=== PATIENT | female | born 1960 | race Caucasian/White ===

== ENCOUNTER 2016-11-11 07:02 | Inpatient (IN) ==
[2016-11-09 17:37] LABS: Appearance,Urine CLEAR; Bacteria,Urine 0 /hpf (0); Bilirubin,Urine NEG (NEG); Color,Urine YELLOW; Glucose,Urine (UA) NEGATIVE (NEG); Leukocyte Esterase,Urine 25 /uL (NEG); Mucus,Urine MOD /hpf (0); Nitrate,Urine NEG (NEG); Protein,Urine NEG (NEG); Urine Blood NEG mg/dL (<0.03); Urine Hyaline Cast 1 /lpf (0-2); Urine RBC 1 /hpf (0-1); Urine Squamous Epithelial Cell 1 /hpf (0-4); Urine Transitional Epi Cells < 1 /hpf (0-2); Urine WBC 2 /hpf (0-4); Urobilinogen,Urine NEG (NEG)
[2016-11-09 20:09] LABS: Basophils # (Auto) 0.1 K/mcL (0.0-0.3); Basophils % (Auto) 0.7 % (0.0-2.0); Eosinophils # (Auto) 0.1 K/mcL (0.0-0.7); Eosinophils % (Auto) 1.2 % (0.0-7.0); Granulocytes % (Auto) 65.8 % (38.0-78.0); Lymphocytes # (Auto) 2.1 K/mcL (1.5-4.8); Lymphocytes % (Auto) 22.8 % (15.5-49.0); Mean Cell Volume 87.5 fL (80.0-100.0); Mean Corpuscular HGB Conc 32.8 g/dL (31.0-36.0); Mean Corpuscular Hemoglobin 28.7 pg (26.0-34.0); Monocytes # (Auto) 0.9 K/mcL (0.1-0.9); Monocytes % (Auto) 9.5 % (1.0-9.0); Platelet Count 421 K/mcL (140-440); RBC 5.18 M/mcL (4.00-5.20); Red Cell Distribution Width 14.1 % (11.5-14.5)
[2016-11-09 20:49] LABS: Blood Urea Nitrogen 17 mg/dl (6-20)
[~2016-11-11 07:02] MED LIST: CELECOXIB 200 MG CAPSULE PO SCH; PREGABALIN 150 MG CAPSULE PO SCH; ceFAZolin 1 GM VIAL IV SCH; oxyCODONE 10 MG TAB.ER.12H PO SCH
[2016-11-11] MEDS ORDERED: TRANEXAMIC ACID 1,000 MG/10 ML VIAL IV ONE ×2 (09:25→11:19)
[2016-11-11] MEDS ORDERED: ONDANSETRON 4 MG/2 ML VIAL IV ONE (09:25)
[2016-11-11] MEDS ORDERED: GLYCOPYRROLATE 0.2 MG/ML VIAL IV ONE (09:25)
[2016-11-11] MEDS ORDERED: SUCCINYLCHOLINE 20 MG/ML ML IV ONE (09:25)
[2016-11-11] MEDS ORDERED: ROPIVACAINE HCL/PF 30 ML VIAL IJ ONE (09:25)
[2016-11-11] MEDS ORDERED: MIDAZOLAM 5 MG/5 ML VIAL IV ONE (09:25)
[2016-11-11] MEDS ORDERED: fentaNYL 250 MCG/5 ML VIAL IV ONE (09:25)
[2016-11-11] MEDS ORDERED: LIDOCAINE HCL/PF 100 MG/5 ML SYRINGE IV ONE (09:25)
[2016-11-11] MEDS ORDERED: PROPOFOL 200 MG/20 ML VIAL IV ONE (09:25)
[2016-11-11] MEDS ORDERED: DEXAMETHASONE 10 MG/ML VIAL IV ONE (09:25)
[2016-11-11] MEDS ORDERED: BENZOCAINE/MENTHOL 1 LOZENGE PO PRN ×2 (10:32→11:19)
[2016-11-11] MEDS ORDERED: FLUMAZENIL 0.1 MG/ML ML IV PRN (10:32)
[2016-11-11] MEDS ORDERED: ATROPINE SULFATE 0.4 MG/ML VIAL IV PRN (10:32)
[2016-11-11] MEDS ORDERED: IPRATROPIUM/ALBUTEROL 3 ML AMPUL.NEB NEB PRN (10:32)
[2016-11-11] MEDS ORDERED: NALOXONE HCL 0.4 MG/ML VIAL IV PRN (10:32)
[2016-11-11] MEDS ORDERED: diphenhydrAMINE 50 MG/ML VIAL IV PRN (10:32)
[2016-11-11] MEDS ORDERED: METHOCARBAMOL 1,000 MG/10 ML VIAL IV PRN (10:32)
[2016-11-11] MEDS ORDERED: fentaNYL 100 MCG/2 ML VIAL IV PRN (10:32)
[2016-11-11] MEDS ORDERED: ONDANSETRON 4 MG/2 ML VIAL IV PRN ×2 (10:32→11:19)
[2016-11-11] MEDS ORDERED: HYDROmorphone 2 MG/ML SYRINGE IV PRN ×2 (10:32→11:19)
[2016-11-11] MEDS ORDERED: PROMETHAZINE 25 MG/ML VIAL IV PRN (10:32)
[2016-11-11] MEDS ORDERED: METOPROLOL TARTRATE 5 MG/5 ML VIAL IV PRN (10:32)
[2016-11-11] MEDS ORDERED: ePHEDrine 50 MG/ML AMPUL IV PRN (10:32)
[2016-11-11] MEDS ORDERED: MEPERIDINE 25 MG/ML SYRINGE IV PRN (10:32)
[2016-11-11] MEDS ORDERED: LACTATED RINGERS 1,000 ML IV SCH (10:45)
[2016-11-11] MEDS ORDERED: KETOROLAC 15 MG/ML VIAL IV PRN (11:19)
[2016-11-11] MEDS ORDERED: BISACODYL 10 MG SUPP.RECT PR PRN (11:19)
[2016-11-11] MEDS ORDERED: MAGNESIUM HYDROXIDE 30 ML ORAL.SUSP PO PRN (11:19)
[2016-11-11] MEDS ORDERED: POLYETHYLENE GLYCOL 3350 17 GM PACKET PO PRN (11:19)
[2016-11-11] MEDS ORDERED: FLEETS ADULT ENEMA PR PRN (11:19)
[2016-11-11] MEDS ORDERED: DEXTROSE 50% 50 ML VIAL IV PRN (11:19)
[2016-11-11] MEDS ORDERED: ZOLPIDEM 10 MG TABLET PO PRN (11:26)
[2016-11-11] MEDS ORDERED: CYCLOBENZAPRINE 10 MG TABLET PO PRN (11:26)
--- NOTE | 2016-11-11 11:29 | Brief Operative Note ---
Date of procedure: 11/11/16 Pre-op diagnosis: Left shoulder sever DJD Post-op diagnosis: same Procedure: Left total shoulder arthroplasty, bicep tenodesis Grafts/Implants: Yes (Depuy CAP 40 x 15, anchor peg glenoid 40) Anesthesia: GETA Findings: above Complications: none Surgeon: Jose Perera Cotton Dispatcher: Aurelio Michaels Estimated blood loss (cc): 200 Specimens Removed/Pathology: none sent Condition: stable Disposition: PACU
[2016-11-11] MEDS ORDERED: INSULIN LISPRO 1 UNIT/0.01 ML UNIT SQ SCH (11:30)
--- NOTE | 2016-11-11 13:01 | XRay Report ---
CLINICAL INFORMATION: Postop shoulder prostheses COMPARISON: None. FINDINGS: Arthroplasty changes noted alignment is anatomic. No osseous abnormality. Soft tissue swelling seen as expected IMPRESSION: Negative Interpreted and Authenticated by: Radu Jacinto 11/11/16
[2016-11-11] MEDS: 0.9 % SODIUM CHLORIDE 1,000 ML IV SCH ×2 (13:25→23:06)
[2016-11-11] MEDS: 0.9 % SODIUM CHLORIDE 10 ML SYRINGE IV SCH ×2 (16:00→21:33)
[2016-11-11] MEDS: ceFAZolin 1 GM VIAL IV SCH (18:08)
[2016-11-11] MEDS: HYDROcodone/APAP 10/325MG TABLET PO PRN ×3 (19:07→23:05)
[2016-11-11] MEDS: DOCUSATE SODIUM 100 MG CAPSULE PO SCH (20:03)
[2016-11-11] MEDS ORDERED: GABAPENTIN 100 MG CAPSULE PO SCH (21:00)
[2016-11-11] MEDS ORDERED: SENNOSIDES 1 TABLET PO SCH (21:00)
[2016-11-12] MEDS: ceFAZolin 1 GM VIAL IV SCH (00:52)
[2016-11-12] MEDS: 0.9 % SODIUM CHLORIDE 10 ML SYRINGE IV SCH (06:10)
--- NOTE | 2016-11-12 07:52 | Discharge Summary ---
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 Chief Complaint: [] Discharge date: 11/12/16 Hospitalization Hospital course: Pt admitted for total shoulder arthroplasty. After procedure pt was transferred to floor for iv pain meds. abx, and PT. pt discharged post-op day 1. Discharge diagnosis: L shoulder osteoarthrosis Exam - Exam Clean and dry: Yes Weight bearing status: none Ortho Discharge - TSA - Patient Instructions Diet: Regular Diet Activity: non weight bearing Total Shoulder Protocol: Leave immobilizer in place except for bathing and ROM. Abduction pillow. Continue to wear sling until seen by physician. Codman Pendulum : These exercises use momentum produced by your body to move your shoulder joint. Bend your knees and shift your weight to your front leg, then back, allowing your arm to swing in the same directions. Using the same technique, alternately shift your weight between your right and left legs, allowing your arm to swing from side to side. These exercises are also performed in counterclockwise and clockwise circular motions. Typically these exercises are performed several times per day, for a set number repetitions or minutes, such as 20 times in a row or 5 minutes at a time. Dressing Care: May shower in 2 days - Follow Up Plan Disposition: Home, Self-Care Prognosis: Good Rehab Potential: Good Overall status at discharge: patient is progressing back to baseline - Orders For Discharge Prescriptions: HYDROcodone/APAP 10/325MG [[place] 10/325Mg] 1 - 2 tab PO Q4HP PRN #60 tablet PRN Reason: Pain Pending Studies Resuscitation Status Full Code Diet Regular Diet Start WedNov 11 Dinner Acetaminophen/Hydrocodone Bitart ([place] 10/325mg) 0 tab PO Q4HP PRN PRN Reason: Pain Last Admin: 11/11/16 23:05 Dose: 2 tab Admin: 11/11/16 19:58 Dose: 1 tab Admin: 11/11/16 19:07 Dose: 1 tab Docusate Sodium (Colace) 100 mg PO BID [facility] Last Admin: 11/11/16 20:03 Dose: 100 mg Gabapentin (Neurontin) 500 mg PO HS [facility] Last Admin: 11/11/16 20:02 Dose: 500 mg Hydromorphone HCl (Dilaudid) 0 mg IV Q2HP PRN PRN Reason: Pain Last Admin: 11/11/16 16:00 Dose: 0.5 mg Sodium Chloride (Sodium Chloride 0.9%) 1,000 mls @ 100 mls/hr IV .Q10H [facility] Last Admin: 11/11/16 23:06 Dose: 100 mls/hr Infusion: 11/11/16 23:06 Dose: 100 mls/hr Admin: 11/11/16 13:25 Dose: 100 mls/hr Senna (Senokot) 2 tab PO HS [facility] Last Admin: 11/11/16 20:03 Dose: 2 tab Sodium Chloride (Saline Flush) 10 ml IV Q8 [facility] Last Admin: 11/12/16 06:10 Dose: Not Given Admin: 11/11/16 21:33 Dose: Not Given Admin: 11/11/16 16:00 Dose: 10 ml Zolpidem Tartrate (Ambien) 10 mg PO HSP PRN PRN Reason: Insomnia Last Admin: 11/11/16 23:05 Dose: 10 mg Shift Summary 11/12/16 04:38 Shift Summary by Bisi Stephens Did well through night. Medicated x2 with 2 tabs Hydrocodone, last so far at 2300. Up with SBA to bathroom to void, QS. Immobilizer in place. 20G IV to RFA. SCD's while in bed. O2 placed while sleeping. Alert and oriented. Hx of chronic back pain, uses cold packs on back while in bed. Tolerating diet. Uses call light appropriately. Initialized on 11/12/16 04:38 - END OF NOTE
--- NOTE | 2016-11-12 08:43 | Operative Note ---
DATE OF OPERATION: 11/11/2016 PREOPERATIVE DIAGNOSIS: Left shoulder severe degenerative joint disease. POSTOPERATIVE DIAGNOSIS: Left shoulder severe degenerative joint disease. PROCEDURE PERFORMED: 1. Left total shoulder arthroplasty. 2. Biceps tenodesis. SURGEON: Jose Perera MD. 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 ANESTHESIA: General. DRAINS: None. SPECIMENS: None. COMPLICATIONS: None. BLOOD LOSS: 150 mL POSTOPERATIVE CONDITION: Stable. INDICATIONS FOR SURGERY: This is a 56-year-old female who is having progressive worsening left shoulder pain. Radiographs showed advanced [id number] osteoarthritis. FINDINGS AT SURGERY: As above. She did have an extremely small glenoid with poor quality bone; however, post-procedure showed satisfactory component position and stability. PROCEDURE IN DETAIL: The patient had been seen preoperatively. Informed consent had been obtained after discussion of risks and benefits of surgery. Risks including, but not limited to, bleeding; infection; injury to nerves, blood vessels, and other surrounding structures; anesthetic risks; incomplete or no resolution of symptoms; stiffness; weakness; dislocation; fracture, possibility of needing further surgery. She understood and wished to proceed. Correct operative site was marked in preoperative holding and the patient was taken to the operating room and general anesthesia was induced. She was carefully positioned in the beach chair position and pressure points carefully padded. Left shoulder and upper extremity were then carefully prepped and draped in normal sterile fashion and a time-out was performed verifying patient name, operative site, and plan. All skin surfaces were covered with Ioban and then a standard deltopectoral incision was made with scalpel through skin and subcutaneous tissue. Hemostasis was obtained with Bovie cautery. Careful blunt dissection was taken down onto the cephalic vein and this was dissected laterally with the deltoid. Blunt finger dissection was used to develop the subdeltoid space and Shaw deltoid retractor placed. We then identified the lateral edge of the conjoint tendon and blue handle retractor placed underneath. The biceps was palpated exit from underneath the pec and we then unroofed this along its course, the bicipital groove and opened the rotator interval. A large effusion was suctioned. We then used curved Rodriguez scissors to amputate the biceps off the superior glenoid and then a curved osteotome was used to osteotomize the lesser tuberosity. A traction stitch was placed around the tuberosity and then we started dislocating the humeral head anteriorly releasing capsule around the inferior neck. Once we had dislocated and exposed, we then removed osteophytes with a curved osteotome and rongeur. Once we had removed osteophytes we then subluxed the humeral head posteriorly with a Fukuda retractor and then placed a #2 tooth retractor on the anterior glenoid. We circumferentially removed the labrum as well as the biceps attachment and released capsule around the inferior neck, keeping the Bovie close to bone. It was around this time the anterior retractor fractured off the anterior lip of the glenoid. We then placed a guide pin and this exited out the anterior glenoid, which we palpated with our finger the glenoid neck. We redirected more posteriorly. This still came out the anterior glenoid, but significantly deeper in so we went ahead and started reaming with a 40 reamer. She had an extremely small glenoid and it was sometime around this time that then the posterior lip of the glenoid fractured off from the retractor. We went ahead and decided to ream the central peg. We did ream this and it did come out the posterior aspect of the glenoid neck. However, we had pretty good bone for the majority of the peg so we elected to go ahead and proceed with a resurfacing. I was concerned that leaving the glenoid as it was being so shortened in its anterior to posterior dimension from the fractured lip of the anterior and posterior glenoid that she might be unstable. We went ahead and then placed the peripheral peg drill guide, we drilled the proximal peg which had good bone coverage around it. We drilled our anterior peg which had circumferential bone around. It did penetrate at the base through the far side of the bone. We then drilled our posterior peg and this did not have bony coverage around it. We went ahead and trialed a 40 and it was appropriately sized so we went ahead and opened a 40 anchor peg glenoid. We placed DBX around the flute of the central peg and then mixed cement. We cemented the anterior and superior peripheral pegs. I did put some cement around the posterior peg but none in the actual glenoid posteriorly. We then impacted the glenoid. I held this perfectly still while cement hardened. Prior to impaction, we did irrigate with IrriSept and then after waiting a minute with pulse lavage. Once cement had fully hardened, we went ahead and carefully removed our retractors and then subluxed the humeral head and dislocated it anteriorly. The head sizer was used to check her head size and it was a 40 as well, so we went ahead and used the sizer to position our guide pin centrally in the head. We drilled this through the far cortex and then used the 40 by 15 reamer. This got bleeding bone throughout so a 40 x 15 cap implant was opened. We again used IrriSept, after a minute pulse lavaged. We then impacted the component until it was fully seated. We checked our stability and was able to sublux posteriorly 50%, so we went ahead and did a final irrigation. Drill holes were made in the bicipital groove and then the #2 FiberWire was passed around the osteotomized lesser tuberosity in a [id number] stitch reducing this anatomically. We placed several more [id number] #2 FiberWires in the rotator interval proximally. We then used our FiberWire to tenodese the biceps and then the lower bicipital groove with [id number] stitch. We amputated the proximal portion of the biceps. We then closed the deltopectoral interval; however, when we were removing the retractors there was a rent in the cephalic vein and we did have to tie this off with a Vicryl tie. A #1 Vicryl stitch was then used to close the deltopectoral interval with a running stitch, final IrriSept and after a minute final irrigation, 2-0 Monocryl was used for subcutaneous and juve for skin. Xeroform and sterile dressing were applied. Arm was placed in a Donjoy immobilizer and patient was then awakened, extubated, and transferred to recovery in stable condition. VERNON:lizeth Job ID: [id number] Doc ID: [id number] Jose Perera MD
[2016-11-12] MEDS: 0.9 % SODIUM CHLORIDE 1,000 ML IV SCH (08:58)
[2016-11-12] MEDS: DOCUSATE SODIUM 100 MG CAPSULE PO SCH (08:59)
[2016-11-12] MEDS: HYDROcodone/APAP 10/325MG TABLET PO PRN (08:59)
[2016-11-12] MEDS ORDERED: FLU VACC QS2016-17 36MOS UP/PF 60 MCG/0.5 ML SYRINGE IM ONE (11:00)
== END 2016-11-12 12:10 | disposition home or self-care (01) | DRG 507 ==
LOC: MEDSUR 07:02
PROVIDERS: ADMIT Orthopaedic Surgery; ATTEND Orthopaedic Surgery